=== PATIENT | male | born 1965 | race Caucasian/White ===

== ENCOUNTER 2021-08-01 09:05 | Emergency (ER) | payer BC ==
[2021-08-01] MEDS ORDERED: IBUPROFEN 600 MG TABLET (FP) PO ONE ×2 (09:31→09:33)
[2021-08-01 09:41] VITALS: BP 151/98; PULSE 98; TEMP 98.3; BMI 33.5
== END 2021-08-01 11:35 | disposition home or self-care (01) ==
LOC: FER 09:05
DX: S82.831A Other fracture of upper and lower end of right fibula, initial encounter for closed fracture (principal); Y30.XXXA Falling, jumping or pushed from a high place, undetermined intent, initial encounter; Y92.9 Unspecified place or not applicable
CPT/HCPCS: 73560-TC-RT-FY; 73590-TC-RT-FY; 73610-TC-RT-FY; 73630-TC-RT-FY; 99284-25